=== PATIENT | male | born 1995 | race Caucasian/White ===

== ENCOUNTER 2017-10-15 00:12 | Emergency (ER) | payer OTHER ==
--- NOTE | 2017-10-15 00:42 | ED Physician Documentation ---
PD HPI HEADACHE - Stated complaint Stated Complaint: HEADACHE,NAUSEA - Chief complaint Chief Complaint: Neuro - History obtained from History obtained from: Patient - History of Present Illness Timing - onset: Yesterday ((10/14)) Timing - onset during: Exertion (snowboarding) Timing - details: Abrupt onset Pain level now: 0 Worst headache ever?: No: Worst headache ever? Location: Global Quality: Throbbing Associated symptoms: Nausea. No: Vomiting, Weakness, Numbness Improved by: Dark room Worsened by: Light Similar symptoms before: Has not had sx before Recently seen: Not recently seen - Additional information Additional information: patient was snowboarding yesterday (Sunday, 10/14) and wearing a helmet when he fell, struck head on the ground. Denies LOC but has had global headache since then associated with mild photophobia, nausea but no vomiting. also mild neck pain that is worse with movement Review of Systems Eyes: reports: Photophobia (mild). denies: Loss of vision, Decreased vision Musculoskeletal: reports: Neck pain. denies: Back pain, Extremity pain, Joint pain, Extremity swelling, Joint swelling Neurologic: reports: Headache, Head injury. denies: Generalized weakness, Focal weakness, Numbness, Altered mental status, LOC PD PAST MEDICAL HISTORY - Past Medical History Past Medical History: No - Past Surgical History Past Surgical History: No - Present Medications Home Medications: Ambulatory Orders Medication Instructions Recorded Confirmed No Known Home Medications [No 10/15/17 10/15/17 Known Home Medications] - Allergies Allergies/Adverse Reactions: Allergies Allergy/AdvReac Type Severity Reaction Status Date / Time No Known Drug Allergies Allergy Verified 10/15/17 00:20 - Social History Does the pt smoke?: No Smoking Status: Never smoker Does the pt drink ETOH?: No Does the pt have substance abuse?: No - Immunizations Immunizations are current?: Yes - POLST Patient has POLST: No PD ED PE NORMAL - Vitals Vital signs reviewed: Yes - General General: Alert and oriented X 3, No acute distress, Well developed/nourished - HEENT HEENT: PERRL, EOMI, Moist mucous membranes - Neck Neck: Supple, no meningeal sign, No bony TTP - Neuro Neuro: Alert and oriented X 3, 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, Normal speech Eye Opening: Spontaneous Motor: Obeys Commands Verbal: Oriented GCS Score: 15 Results - Vitals Vitals: Vital Signs - 24 hr 10/15/17 10/15/17 10/15/17 00:15 02:02 02:20 Temperature 36.7 C 37.1 C Heart Rate 64 62 68 Respiratory 14 16 14 Rate Blood Pressure 141/96 H 136/85 H 132/86 H O2 Saturation 98 99 98 Oxygen O2 Source Room air - Rads (name of study) CT head Radiology: Prelim report reviewed, See rad report PD MEDICAL DECISION MAKING - ED course Complexity details: reviewed results, re-evaluated patient, considered differential, d/w patient Departure - Departure Disposition: 01 Home, Self Care Clinical Impression: Head injury Qualifiers: Encounter type: initial encounter Qualified Code(s): S09.90XA - Unspecified injury of head, initial encounter Condition: Good Instructions: ED Concussion, ED Head Injury Closed, ED Sprain Strain Neck Follow-Up: [facility] [Provider Group] Forms: Activity restrictions Discharge Date/Time: 10/15/17 02:20
--- NOTE | 2017-10-15 01:36 | CT Report ---
EXAM: CT HEAD EXAM DATE: 10/15/2017 01:26 AM. CLINICAL HISTORY: Headache after head injury. COMPARISON: None. TECHNIQUE: Multiaxial CT images were obtained from the foramen magnum to the vertex. Reformats: Coron al. IV contrast: None. In accordance with CT protocol optimization, one or more of the following dose reduction techniques w ere utilized for this exam: automated exposure control, adjustment of mA and/or KV based on patient s ize, or use of iterative reconstructive technique. FINDINGS: Parenchyma: No intraparenchymal hemorrhage. No evidence of mass, midline shift, or CT findings of inf arction. Cosby-white differentiation is distinct. Extraaxial Spaces: Normal for age. No subdural or epidural collections identified. Ventricles: Normal in size and position. Sinuses and Orbits: Imaged paranasal sinuses, orbits, and mastoids show no significant abnormality. Bones: No evidence of fracture or calvarial defect. Other: None. IMPRESSION: No acute or focal intracranial abnormality. [facility] Referring Provider Line: [phone] SITE ID: [id number]
[2017-10-15 02:26] VITALS: BP 132/86
== END 2017-10-15 02:20 | disposition home or self-care (01) ==
LOC: ED 00:12
DX: S09.90XA Unspecified injury of head, initial encounter (principal); V00.311A Fall from snowboard, initial encounter; Y93.23 Activity, snow (alpine) (downhill) skiing, snowboarding, sledding, tobogganing and snow tubing
CPT/HCPCS: 70450; 99283

== ENCOUNTER 2018-03-19 11:55 | Emergency (ER) | payer OTHER ==
[2018-03-19 12:24] VITALS: BP 127/67
[2018-03-19] MEDS ORDERED: AMOXICILLIN 250 MG CAPSULE PO STA (14:14)
[2018-03-19] MEDS ORDERED: DEXAMETHASONE 10 MG/ML VIAL PO STA (14:14)
--- NOTE | 2018-03-19 14:17 | ED Physician Documentation ---
History of Present Illness - Stated complaint Stated Complaint: THROAT PX - Chief complaint Chief Complaint: Heent - Additonal information Additional information: hx from pt 20 m AD [place] sore throat and body aches Review of Systems Constitutional: reports: Fever, Myalgias Throat: reports: Sore throat Respiratory: denies: Cough GI: denies: Abdominal Pain Immunocompromised: denies: Immunocompromised PD PAST MEDICAL HISTORY - Past Medical History Past Medical History: No - Past Surgical History Past Surgical History: No - Present Medications Home Medications: Ambulatory Orders Medication Instructions Recorded Confirmed Amoxicillin 500 mg PO Q8H #30 capsule 03/19/18 - Allergies Allergies/Adverse Reactions: Allergies Allergy/AdvReac Type Severity Reaction Status Date / Time No Known Drug Allergies Allergy Verified 03/19/18 13:31 - Social History Does the pt smoke?: No Smoking Status: Never smoker Does the pt drink ETOH?: No Does the pt have substance abuse?: No - Immunizations Immunizations are current?: Yes - POLST Patient has POLST: No PD ED PE NORMAL - Vitals Vital signs reviewed: Yes - HEENT HEENT: Moist mucous membranes, Other (massible enlarged kissing exudative erythematous tonsils) - Neck Neck: Supple, no meningeal sign - Cardiac Cardiac: RRR - Respiratory Respiratory: No respiratory distress, Clear bilaterally Results - Vitals Vitals: Vital Signs - 24 hr 03/19/18 12:18 Temperature 37.7 C H Heart Rate 107 H Respiratory 18 Rate Blood Pressure 127/67 O2 Saturation 99 Oxygen O2 Source Room air - Labs Labs: Laboratory Tests 03/19/18 12:23 Group A Strep Rapid POSITIVE H PD MEDICAL DECISION MAKING - Sepsis Event Vital Signs: Vital Signs - 24 hr 03/19/18 12:18 Temperature 37.7 C H Heart Rate 107 H Respiratory 18 Rate Blood Pressure 127/67 O2 Saturation 99 Oxygen O2 Source Room air Departure - Departure Disposition: 01 Home, Self Care Clinical Impression: Exudative tonsillitis Condition: Good Instructions: ED Tonsillitis Follow-Up: [facility] [Provider Group] Prescriptions: Amoxicillin 500 mg PO Q8H #30 capsule Comments: The steroids should start to decrease the tonsil swelling later this afternoon Take the antibiotics as directed Rest and drink plenty of fluids Tylenol and motrin as needed for the pain May fly tomorrow but wear a mask to protect other passengers
== END 2018-03-19 14:31 | disposition home or self-care (01) ==
LOC: ED 11:55
DX: J03.90 Acute tonsillitis, unspecified (principal)
CPT/HCPCS: 87430; 99283; A9270